=== PATIENT | male | born 1975 | race Caucasian/White ===

== ENCOUNTER → 2016-12-22 | Outpatient (CLI) | payer OTHER ==
[~2016-12-22] MED LIST: ELIQUIS2.5 MG PO; MOBIC15 MG PO; NORCO 5-325 TA1 EACH PO; NORCO 7.5-3251 EACH PO; PERCOCET 10-321 EACH PO; PERCOCET 7.5-31 EACH PO; PRILOSEC PO; VITAMIN D350000 UNIT PO
== END ==
LOC: KOH-I 09:50
DX: G63 Polyneuropathy in diseases classified elsewhere (principal); M47.816 Spondylosis without myelopathy or radiculopathy, lumbar region
CPT/HCPCS: 72110

== ENCOUNTER → 2017-01-01 | Outpatient (CLI) | payer OTHER | LOC: KOH-I 11:20 | DX: M54.5 Low back pain (principal); M51.36 Other intervertebral disc degeneration, lumbar region; M43.17 Spondylolisthesis, lumbosacral region | CPT/HCPCS: 72148 ==

== ENCOUNTER → 2017-02-04 | Outpatient (CLI) | payer OTHER ==
[~2017-02-04] VITALS: Ht 177.8 cm; Wt 104.8 kg
[2017-02-04 10:37] LABS: HEMOGLOBIN 14.4 gm/dl (14.0-17.5); RED BLOOD COUNT 4.77 M/UL (4.20-5.50); WHITE BLOOD COUNT 6.3 K/UL (4.5-11.0)
[2017-02-04 10:55] LABS: BUN/CREATININE RATIO 21 (0-10)
== END ==
LOC: OPSV2 09:59
PROVIDERS: Orthopaedic Surgery
DX: Z01.812 Encounter for preprocedural laboratory examination (principal); M17.11 Unilateral primary osteoarthritis, right knee; Z88.0 Allergy status to penicillin
CPT/HCPCS: 36415; 80048; 81001; 85027; 87081

== ENCOUNTER → 2017-02-18 | Outpatient (CLI) | payer OTHER ==
[2017-02-18 11:04] LABS: BUN/CREATININE RATIO 16 (0-10)
== END ==
LOC: LAB 09:34
PROVIDERS: Orthopaedic Surgery
DX: Z01.812 Encounter for preprocedural laboratory examination (principal); M17.11 Unilateral primary osteoarthritis, right knee
CPT/HCPCS: 36415; 80048; 86850; 86900; 86901

== ENCOUNTER 2017-02-19 06:11 | Inpatient (IN) | payer OTHER ==
[~2017-02-19] VITALS: Ht 180.3 cm; Wt 102.1 kg
[~2017-02-19 06:11] MED LIST changes: -ELIQUIS2.5 MG PO; -NORCO 7.5-3251 EACH PO; -PERCOCET 10-321 EACH PO; -PERCOCET 7.5-31 EACH PO
[2017-02-20 05:55] LABS: HEMOGLOBIN 12.8 gm/dl (14.0-17.5); RED BLOOD COUNT 4.34 M/UL (4.20-5.50); WHITE BLOOD COUNT 10.4 K/UL (4.5-11.0)
[2017-02-20 06:13] LABS: BUN/CREATININE RATIO 10 (0-10)
[2017-02-21 06:26] LABS: HEMOGLOBIN 13.4 gm/dl (14.0-17.5); RED BLOOD COUNT 4.52 M/UL (4.20-5.50); WHITE BLOOD COUNT 10.9 K/UL (4.5-11.0)
[2017-02-21 06:47] LABS: BUN/CREATININE RATIO 10 (0-10)
[2017-02-22 05:40] LABS: HEMOGLOBIN 13.4 gm/dl (14.0-17.5); RED BLOOD COUNT 4.51 M/UL (4.20-5.50); WHITE BLOOD COUNT 8.5 K/UL (4.5-11.0)
[2017-02-22 05:55] LABS: BUN/CREATININE RATIO 15 (0-10)
[2017-02-22] MEDS ORDERED: ELIQUIS2.5 MG PO (10:52)
[2017-02-22] MEDS ORDERED: PERCOCET 7.5-31 EACH PO (10:54)
[2017-06-11] MEDS ORDERED: NORCO 7.5-3251 EACH PO (08:08)
[2017-06-18] MEDS ORDERED: ELIQUIS2.5 MG PO (13:19)
[2017-06-18] MEDS ORDERED: PERCOCET 10-321 EACH PO (13:20)
== END 2017-02-22 12:56 | disposition home health service (06) | DRG 470 ==
LOC: ZOBSOF 06:11 → M/S 12:34
PROVIDERS: ADMIT Orthopaedic Surgery
PROC: 0SRC0J9 Replacement of Right Knee Joint with Synthetic Substitute, Cemented, Open Approach (ICD-10-PCS; principal; 2017-02-19 08:15)
DX: M17.11 Unilateral primary osteoarthritis, right knee (principal); K21.9 Gastro-esophageal reflux disease without esophagitis; Z98.890 Other specified postprocedural states; Z79.1 Long term (current) use of non-steroidal anti-inflammatories (NSAID); Z79.899 Other long term (current) drug therapy; Z88.0 Allergy status to penicillin; F17.210 Nicotine dependence, cigarettes, uncomplicated; M76.9 Unspecified enthesopathy, lower limb, excluding foot; Z91.013 Allergy to seafood; Z82.3 Family history of stroke
CPT/HCPCS: 36415; 73560; 80048; 85027; 97110; 97116; 97530; 97535; C1776; J2250; J2270; J2795; J3010; J3370; J7050; J7070; J7120